=== PATIENT | female | born 1970 | race Hispanic/Latino ===

== ENCOUNTER 2017-08-09 20:19 | Emergency (ER) | payer MEDICARE, MEDICAID ==
--- NOTE | 2017-08-09 22:43 | C.PDOC ---
History Of Present Illness Patient is a 46 y/o female who presents to the ED with a complaint of tenderness and pain to left trapezius area. Patient reports pain originates from movement of left shoulder; denies injury or fall. Patient had a Hx of similar presentation in 08/2016 and was treated for anxiety and stress with valium and percocet; denies using percocet at the time. Patient believes pain is related to stress. 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 Admits to treating pain with heater blowing on shoulder; denies taking NSAIDS. No other physical complaints at this time. Time Seen by Provider: 08/09/17 22:41 Chief Complaint (Nursing): Upper Extremity Problem/Injury History Per: Patient History/Exam Limitations: no limitations Onset/Duration Of Symptoms: Days Current Symptoms Are (Timing): Still Present Quality: "Pain" Recent travel outside of the [place]: No Past Medical History Reviewed: Historical Data, Nursing Documentation, Vital Signs Vital Signs: Last Vital Signs Temp 98.3 F 08/09/17 23:44 Pulse 85 08/09/17 23:44 Resp 18 08/09/17 23:44 BP 132/85 08/09/17 23:44 Pulse Ox 96 08/09/17 23:44 - Medical History PMH: No Chronic Diseases Surgical History: No Surg Hx Family History: States: No Known Family Hx - Social History Hx Tobacco Use: No Hx Alcohol Use: No Hx Substance Use: No - Immunization History Hx Tetanus Toxoid Vaccination: No Hx Influenza Vaccination: No Hx Pneumococcal Vaccination: No Review Of Systems Musculoskeletal: Positive for: Neck Pain (left trapezius pain ) Psych: Positive for: Anxiety Physical Exam - Physical Exam Appears: Well Skin: Normal Color, Warm, Dry, No Rash Head: Atraumatic, Normacephalic Oral Mucosa: Moist Neck: Other (tenderness to left trapezius area) Cardiovascular: Rhythm Regular Respiratory: Normal Breath Sounds, No Rales, No Rhonchi, No Wheezing Gastrointestinal/Abdominal: Soft, No Tenderness Neurological/Psych: Oriented x3, Normal Speech, Normal Cognition ED Course And Treatment O2 Sat by Pulse Oximetry: 97 Medical Decision Making Medical Decision Making: L trapezius tenderness, similar to approx 1 yr ago no trauma, defer repeat x-rays. worse with heat therapies normal EKG- purely musculoskeletal, NO cardiac s/s. Reassured. Ice pack and toradol IM administered. Disposition Doctor Will See Patient In The: Office Counseled Patient/Family Regarding: Studies Performed, Diagnosis - Disposition Referrals: Evangelista Valdez MD [Staff Provider] - Disposition: HOME/ ROUTINE Disposition Time: 23:25 Condition: GOOD Additional Instructions: ice packs to affected area 1/2 hour per hour, nothing hot: no hot showers, no heaters/heating pads Motrin 400-600 mg every 6 hours as needed for pain No heavy lifting for 1 week Follow-up w Dr. Valdez as needed. Instructions: Muscle Strain (ED) Forms: [facility] (Romanian), Work Excuse - Clinical Impression Clinical Impression: Muscle strain - Scribe Statement The provider has reviewed the documentation as recorded by the Scribe Chrissie Hays All medical record entries made by the Scribe were at my direction and personally dictated by me. I have reviewed the chart and agree that the record accurately reflects my personal performance of the history, physical exam, medical decision making, and the department course for this patient. I have also personally directed, reviewed, and agree with the discharge instructions and disposition.
[2017-08-09 23:44] VITALS: BP 132/85; PULSE 85; RESP 18; TEMP 98.3
[2017-08-10 01:11] VITALS: O2SAT 97
== END 2017-08-09 23:45 | disposition home or self-care (01) ==
LOC: C.ER 20:19
DX: S16.1XXA Strain of muscle, fascia and tendon at neck level, initial encounter (principal); X58.XXXA Exposure to other specified factors, initial encounter; Y99.0 Civilian activity done for income or pay
CPT/HCPCS: 96372; 99284; J1885